=== PATIENT | male | born 1960 | race American Indian/Alaskan Native ===

== ENCOUNTER 2016-07-21 17:14 | Outpatient (CLI) | payer OTHER | END 2016-07-21 17:15 | disposition home or self-care (01) | LOC: LABHHL 17:14 | PROVIDERS: ATTEND Internal Medicine Gastroenterology | DX: Z12.11 Encounter for screening for malignant neoplasm of colon (principal); K92.2 Gastrointestinal hemorrhage, unspecified | CPT/HCPCS: 88305 ==